=== PATIENT | male | born 2000 | race Caucasian/White ===

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

== ENCOUNTER → 2024-07-15 | Outpatient (REF) | payer BC, OTHER ==
[~2024-07-15] MED LIST: ADDERALL XR 3030 MG PO; LAMOTRIGINE100 MG PO; LITHIUM CARBON600 MG; MINOCYCLINE HCL50 MG PO; MONTELUKAST SOD10 MG PO; SYNTHROID100 MCG PO; TYLENOL WITH C1 EACH PO
== END ==
LOC: RAD 13:35
PROVIDERS: ATTEND Internal Medicine
DX: J40 Bronchitis, not specified as acute or chronic (principal)
CPT/HCPCS: 71046